=== PATIENT | female | born 2000 | race Caucasian/White ===

== ENCOUNTER 2022-11-11 23:47 | Emergency (ER) | payer SELFPAY ==
[~2022-11-11] VITALS: Ht 149.9 cm; Wt 52.3 kg
[2022-11-11 23:55] VITALS: BP 123/79; TEMP 98.4
[2022-11-12] MEDS ORDERED: AMOXICILLIN 8751 TAB PO (00:52)
[2022-11-12 00:58] VITALS: PULSE 99
== END 2022-11-12 01:06 | disposition home or self-care (01) ==
LOC: COL.ER 23:47
DX: S61.357A Open bite of left little finger with damage to nail, initial encounter (principal); Z23 Encounter for immunization; W54.0XXA Bitten by dog, initial encounter